=== PATIENT | female | born 2005 | race Caucasian/White ===

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

== ENCOUNTER 2025-05-07 12:41 | Emergency (ER) | payer MEDICAID ==
[~2025-05-07] VITALS: Ht 162.6 cm; Wt 119.0 kg
[~2025-05-07 12:41] MED LIST: ACET-2708 MT; AMOX1TAB15 MT; AZIT500T8 MT; DEXTL PO; [UNRECOGNIZED DRUG - CODE] BOTHNSTRLS
[2025-05-07 12:58] VITALS: O2SAT 100
[2025-05-07] MEDS ORDERED: BO1 TP (15:41)
[2025-05-07 16:13] VITALS: BP 118/68; PULSE 99; RESP 18; TEMP 36.7; O2SAT 100
== END 2025-05-07 16:14 | disposition home or self-care (01) ==
LOC: ER 12:41
DX: T23.039A Burn of unspecified degree of unspecified multiple fingers (nail), not including thumb, initial encounter (principal); X58.XXXA Exposure to other specified factors, initial encounter; Y93.89 Activity, other specified; Y92.89 Other specified places as the place of occurrence of the external cause; Y99.8 Other external cause status
CPT/HCPCS: 99282